=== PATIENT | male | born 1985 | race Caucasian/White ===

== ENCOUNTER 2017-10-09 20:44 | Emergency (ER) | payer BC, SELFPAY ==
--- NOTE | 2017-10-09 20:58 | XR_ITS ---
XR hand LT min 3V 2056: hours HISTORY: Pain following injury ITS.REASON: INJURED PLAYING BASKETBALL ORDERING PHYSICIAN: Do Burleson PATIENT AGE: 31 years COMPARISON: None FINDINGS: There is dorsal dislocation of the middle phalanx of the fifth finger. Faint calcification is present along the anterior aspect of the PIP joint of the fifth digit and may represent avulsion fracture fragments versus periarticular calcification. No old films available for comparison. There is some cortical irregularity involving the base of the fifth metacarpal with a faint lucency at this region. IMPRESSION: 1. Dorsal dislocation of the PIP joint of the fifth digit with associated avulsion fracture versus periarticular calcification 2. Possible nondisplaced fracture at the proximal aspect of the fifth metacarpal. This could represent an older injury. Please correlate clinically.
[2017-10-09 21:26] VITALS: BP 123/84; PULSE 96; RESP 20; TEMP 37.1; O2SAT 98; BMI 25.4
--- NOTE | 2017-10-09 22:15 | HMH.EDUTC ---
[facility] [place]ression: Dislocation of fifth finger, metacarpal joint, proximal, left, closed, Fracture of middle phalanx of finger of left hand Disposition: Home, Self-Care Condition on Discharge: Good Instructions: DI for Finger Fracture, DI for Finger Dislocation, How To Perform RICE (Rest, Ice, Compress, Elevate) Additional Instructions: * Rest * ice 15-20 mins 3-4 times a day * finger splint for support and swelling unless in shower. Be sure not too tight but not too loose either * Elevate as discussed as much as possible to help reduce swelling and therefore, pain * Ibuprofen every 6 hours as needed for pain and inflammation. If you need something more, you can take tylenol every 4 hours as needed as long as your primary care provider has told you it is ok to take both. REMEMBER you had 800mg ibuprofen in clinic so no additional ibuprofen for 6 hours Referrals: Jeimy Nagy [Referring] - (Try [phone]. Has a [place] office on [address]. Call tomorrow. [facility]. Dislocation left 5th PIP joint. Relocated. Concern for fracture middle phalanx on post reduction film. Was told to call for follow up appt. if you have any trouble getting a follow up, call me on Sunday or at [phone]. Take the provided CDs with you to your appointment.) Time of Disposition: 22:42 Medical Decision Making - Joe Inquiry Pt receiving controlled substance: No Vital Signs: 10/09/17 21:26 Temperature 98.7 F Temperature Source Oral Pulse Rate [Right Radial] 96 H Respiratory Rate 20 Blood Pressure [Right Arm] 123/84 Blood Pressure Mean [Right Arm] 97 02 Sat by Pulse Oximetry 98 Oxygen Delivery Method Room Air Orders (Tests/Meds): ED MEDICATIONS Discontinued Medications Generic Name Dose Route Start Last Admin Trade Name Freq PRN Reason Stop Dose Admin Ibuprofen 800 mg 10/09/17 22:20 10/09/17 22:24 Motrin 400mg Tablet PO 10/09/17 22:21 800 mg ONCE ONE Administration ORDERS Category Date Time Status Finger XR left minimum 2 views [XR finger LT min 2V] Exams 10/09/17 22:19 Ordered Stat XR hand LT min 3V Stat Exams 10/09/17 20:58 Taken - Radiology Data #1 Image(s): Hand, Finger(s)/Thumb Image Reviewed: Yes I reviewed the patient's radiology image w/the ED provider dislocation left 5th digit PIP joint post-reduction finger xray: relocated but possible middle phalanx fracture - Physician Consults Physician Consulted: SUREKHA Helms MD Time: 22:10 Reason -: Pt condition Comment/Response: Rvwd xray. Came to [facility] and examined patient. Discussed HPI w/ patient. Discussed procedure to reduce dislocation. pt agreed but declined pain medication or digit block. Only hurts a little . Post reduction, appeared uncomfortable but like he was too timid to ask for medication. once offered, agreed to ibuprofen and ice pack. Also rvwd postreduction film and suggested hand follow up. [facility] [place] - General Stated complaint: ao [id number] Playing basketball left little fing Time Seen by Provider: 10/09/17 22:15 Mode of Arrival: Family Vehicle Limitations: No Limitations Description of Symptoms (Recalled from Triage Doc. by RN): PT STATES HE WAS PLAYING BASKETBALL AND AND JAMMED HIS LEFT PINKY FINGER. HEENT Symptoms (Recalled from RN notes): No Resp Symptoms (Recalled from RN notes): No Skin Symptoms (Recalled from RN notes): No MS Symptoms (Recalled from RN notes): Yes (JAMMED LEFT PINKY FINGER) Functional Status (Recalled from RN notes): NA - History of Present Illness Provider Complaint: c/o pain and swelling left 5th digits after jamming it with a basketball approx 1-1.5 hours before arrival. I tried to get someone on my team to relocate it for me but they wouldn't. I think it is dislocated. . Difficulty with ROM. Reports pain as not too bad really . Declines medication at this time. Wanting xray to see if dislocated. - Related Data
--- NOTE | 2017-10-09 22:19 | ED_ITS ---
[facility] – [place] Disposition Clinical Impression: Dislocation of fifth finger, metacarpal joint, proximal, left, closed, Fracture of middle phalanx of finger of left hand Disposition: Home, Self-Care Condition on Discharge: Good Instructions: DI for Finger Fracture, DI for Finger Dislocation, How To Perform RICE (Rest, Ice, Compress, Elevate) Additional Instructions: * Rest * ice 15-20 mins 3-4 times a day * finger splint for support and swelling unless in shower. Be sure not too tight but not too loose either * Elevate as discussed as much as possible to help reduce swelling and therefore , pain * Ibuprofen every 6 hours as needed for pain and inflammation. If you need something more, you can take tylenol every 4 hours as needed as long as your primary care provider has told you it is ok to take both. REMEMBER you had 800mg ibuprofen in clinic so no additional ibuprofen for 6 hours Referrals: Jeimy Nagy [Referring] - (Try [phone]. Has a [place] office on [address]. Call tomorrow. Report [facility]. Dislocation left 5th PIP joint. Relocated. Concern for fracture middle phalanx on post reduction film. Was told to call for follow up appt. if you have any trouble getting a follow up, call me on Sunday or at [phone]. Take the provided CDs with you to your appointment.) Time of Disposition: 22:42 Medical Decision Making - Joe Inquiry Pt receiving controlled substance: No Vital Signs: 10/09/17 21:26 Temperature 98.7 F Temperature Source Oral Pulse Rate [Right Radial] 96 H Respiratory Rate 20 Blood Pressure [Right Arm] 123/84 Blood Pressure Mean [Right Arm] 97 02 Sat by Pulse Oximetry 98 Oxygen Delivery Method Room Air Orders (Tests/Meds): ED MEDICATIONS Discontinued Medications Generic Name Dose Route Start Last Admin Trade Name Freq PRN Reason Stop Dose Admin Ibuprofen 800 mg 10/09/17 22:20 10/09/17 22:24 Motrin 400mg Tablet PO 10/09/17 22:21 800 mg ONCE ONE Administration ORDERS Category Date Time Status Finger XR left minimum 2 views [XR finger LT min 2V] Exams 10/09/17 22:19 Ordered Stat XR hand LT min 3V Stat Exams 10/09/17 20:58 Taken - Radiology Data #1 Image(s): Hand, Finger(s)/Thumb Image Reviewed: Yes I reviewed the patient's radiology image w/the ED provider dislocation left 5th digit PIP joint post-reduction finger xray: relocated but possible middle phalanx fracture - Physician Consults Physician Consulted: Dr. Mckay ER Time: 22:10 Reason -: Pt condition Comment/Response: Rvwd xray. Came to [facility] and examined patient. Discussed HPI w/ patient. Discussed procedure to reduce dislocation. pt agreed but declined pain medication or digit block. Only hurts a little . Post reduction, appeared uncomfortable but like he was too timid to ask for medication. once offered, agreed to ibuprofen and ice pack. Also rvwd postreduction film and suggested hand follow up. [facility] [place] HPI - General Stated complaint: ao [phone] Playing basketball left little fing Time Seen by Provider: 10/09/17 22:15 Mode of Arrival: Family Vehicle Limitations: No Limitations Description of Symptoms (Recalled from Triage Doc. by RN): PT STATES HE WAS PLAYING BASKETBALL AND AND JAMMED HIS LEFT PINKY FINGER. HEENT Symptoms (Recalled from RN notes): No Resp Symptoms (Recalled from RN notes): No
--- NOTE | 2017-10-09 22:19 | XR_ITS ---
XR finger LT min 2V CLINICAL INDICATION: Follow-up fracture ITS.REASON: post reduction ORDERING PHYSICIAN: Do Burleson PATIENT AGE: 31 years COMPARISON: Prereduction exam FINDINGS: There is been interval reduction of the PIP joint dislocation with good alignment. Calcification is noted anterior to the PIP joint consistent with avulsion fragments versus periarticular calcification. The previously noted faint lucency at the base of the fifth metacarpal is not as apparent on this exam. IMPRESSION: Interval reduction of the PIP dislocation as described above with anterior avulsion fracture fragments versus periarticular calcification
[2017-10-09 22:42] VITALS: BP 118/68; PULSE 85; RESP 20; TEMP 36.9; O2SAT 98
== END 2017-10-09 22:44 | disposition home or self-care (01) ==
PROVIDERS: Emergency Provider Nurse Practitioner Family; Family Provider Family Medicine; PCP Family Medicine
DX: S63.055A Dislocation of other carpometacarpal joint of left hand, initial encounter (principal); S62.647A Nondisplaced fracture of proximal phalanx of left little finger, initial encounter for closed fracture; W21.05XA Struck by basketball, initial encounter; Y92.89 Other specified places as the place of occurrence of the external cause
CPT/HCPCS: 26755; 73130; 73140; 99201

== ENCOUNTER 2024-04-08 11:30 | Outpatient (CLI) | payer BC, SELFPAY ==
--- NOTE | 2024-04-08 11:42 | XR_ITS ---
FINAL REPORT CLINICAL HISTORY: PAIN IN FOOT pain dorsal surface around 3-5 metatarsal area COMPARISON: None FINDINGS: RIGHT FOOT 3 views of the right foot were obtained. There is no acute fracture or dislocation. A prominent os trigonum is present, measuring 2.2 cm in length. Visualized joint spaces are normally aligned. Soft tissues are unremarkable. IMPRESSION: No acute bony abnormality. Reviewed, Interpreted and Dictated by Catalino Purdy MD Transcribed by Gypsy Candelaria Authenticated and [facility]
== END 2024-04-08 23:59 | disposition home or self-care (01) ==
LOC: RAD 11:35
PROVIDERS: PCP Nurse Practitioner Family; Visit Provider Nurse Practitioner Family
DX: M79.671 Pain in right foot (principal)
CPT/HCPCS: 73630